=== PATIENT | female | born 2000 | race Caucasian/White ===

== ENCOUNTER 2021-03-31 11:58 | Day surgery (SDC) | payer OTHER, SELFPAY ==
[2021-03-31] MEDS ORDERED: Rocuronium Bromide 10 MG/ML (10ML VIAL) ONE (12:52)
[2021-03-31] MEDS ORDERED: Dexamethasone 20 MG/5 ML VIAL ONE (12:52)
[2021-03-31] MEDS ORDERED: ePHEDrine 50 MG/ML VIAL ONE (12:52)
[2021-03-31] MEDS ORDERED: Ketorolac Tromethamine 30 MG/ML VIAL ONE (12:52)
[2021-03-31] MEDS ORDERED: PROPOFOL 200 MG/20 ML VIAL ONE (12:52)
[2021-03-31] MEDS ORDERED: Glycopyrrolate 0.2 MG/ML 5 ML SYRINGE ONE (12:52)
[2021-03-31] MEDS ORDERED: Ondansetron PF 4 MG/2 ML Vial ONE (12:52)
[2021-03-31] MEDS ORDERED: Lidocaine 1% PF 5 ML VIAL ONE (12:52)
[2021-03-31] MEDS ORDERED: Promethazine HCl 25 MG/ML VIAL ONE (13:06)
[2021-03-31] MEDS ORDERED: Fentanyl 100 MCG/2 ML VIAL ONE (13:41)
[2021-03-31] MEDS ORDERED: SUGAMMADEX SODIUM 200 MG/2 ML VIAL ONE (13:46)
[2021-03-31] MEDS ORDERED: HYDROcodone/Acetaminophen 5/325 mg Tablet ONE (15:10)
== END 2021-03-31 16:00 | disposition home or self-care (01) ==
LOC: SDC 11:58
PROVIDERS: ATTEND Surgery
PROC: 0DTJ4ZZ Resection of Appendix, Percutaneous Endoscopic Approach (ICD-10-PCS; principal; 2021-03-31)
DX: K35.80 Unspecified acute appendicitis (principal); K38.8 Other specified diseases of appendix
CPT/HCPCS: 88304; J1100; J1885; J2405; J2550; J2704; J3010; J3490